=== PATIENT | female | born 1930 | race Caucasian/White ===

== ENCOUNTER → 2016-04-16 | Outpatient (CLI) | payer MEDICARE ==
[~2016-04-16] MED LIST: ALB0.5V IH; AMLO5TAB2 PO; CALC-697 PO; CALC-78 PO; CETI-267 PO; CETI10TA20 PO; CLON0.1T PO; DOCU-143 PO; DULO30CA48 PO; FLAX100031 PO; FLUT16SP22 NS; FLUT1DIS26 IH; FURO-124 PO; IPRA3AMP IH; ISOS30TA3 PO; MELO-170 PO; MONT10TA21 PO; MONT10TA24 PO; POLY17PO6 PO; POTA10CA43 PO; PRED10TA22 PO; ROPI1TAB40 PO; RT-ALBUINH IH; RT-ALBUTEROL SULF 2.5 MG/3 ML PRE-MIX VIAL INH ONE; SIMV40TA4 PO; TRAM50TA2 PO; UMEC62.5 IH
== END ==
LOC: RT 14:01
PROVIDERS: ATTEND Nurse Practitioner Family
DX: J44.9 Chronic obstructive pulmonary disease, unspecified (principal); R09.02 Hypoxemia; I27.2 Other secondary pulmonary hypertension; R06.2 Wheezing; J30.9 Allergic rhinitis, unspecified; Z87.891 Personal history of nicotine dependence
CPT/HCPCS: 94060; 94640; 94726; 94729